=== PATIENT | male | born 1980 | race Caucasian/White ===

== ENCOUNTER 2018-05-26 08:37 | Observation (INO) ==
--- NOTE | 2018-05-26 09:04 | ED ---
HPI General Chief Complaint: Chest Pain Stated Complaint: Chest pains Time Seen by Provider: 05/26/18 08:58 History of Present Illness HPI narrative: The patient is a 37-year-old male with a history of unexplained clots to the kidney complaining of left substernal chest pain. The chest pain began around 5 AM when he woke up earlier this morning and radiated from the left side of the sternum to his left shoulder. He is at the chest pain was constant, sharp, and a 6/10 on the pain scale. Now he rates his pain as a 4/10 on the pain scale. The patient took 325 mg of aspirin which provided some relief but he still currently feels some of the pain. He has no associated shortness of breath, nausea, vomiting, or diaphoresis. He is never had anything like this before. He reported to his medical office and had a normal EKG earlier this morning but since the pain continued he decided to report to the emergency department. Complete Quality Measures for STEMI Alert Patients Related Data Home Medications Medication Instructions Recorded Confirmed aspirin 325 mg PO DAILY 05/26/18 05/26/18 esomeprazole magnesium [Nexium 20 mg PO DAILY 05/26/18 05/26/18 24HR] Allergies Allergy/AdvReac Type Severity Reaction Status Date / Time cefaclor Allergy Severe HIVES Verified 05/26/18 08:39 Review of Systems Constitutional Denies chills and Denies fever(s) Eyes Denies blurry vision and Denies photophobia ENT Denies hearing loss and Denies sore throat Cardiovascular Reports chest pain, Denies diaphoresis and Reports radiating jaw, neck or arm pain (Radiating to the left shoulder) Respiratory Denies cough and Denies dyspnea Gastrointestinal Denies nausea and Denies vomiting Genitourinary Denies dysuria and Denies flank pain Musculoskeletal Denies muscle weakness and Denies stiffness Integumentary/Breasts Denies rash and Denies jaundice Neurologic Denies focal weakness and Denies numbness Psychiatric Denies anxiety and Denies behavioral changes Endocrine Denies flushing and Denies palpitations PMFSH Medical History Medical History Hx of blood clots (Acute) Surgical History Surgical History No pertinent past surgical history (Acute) Social History Social History Substance History: No History of Abuse Second Hand Smoke Exposure: Yes Smoking Status: Current every day smoker Tobacco Type: Cigarettes How Often Do You Have a Drink Containing Alcohol: 2 to 4 times a month Recent Travel in [facility] within the Last 8 Weeks: No Recent Out of Country Travel within the Last 8 Weeks: No Immunization History Tetanus Immunization: >5 Years Hx Influenza Vaccine This Season: No Exam Narrative Exam Narrative: GENERAL: Well-developed well-nourished male appearing in no acute respiratory distress SKIN: Focused skin assessment warm/dry. HEAD: Atraumatic. Normocephalic. EYES: Pupils equal and round. No scleral icterus. No injection or drainage. ENT: No nasal bleeding or discharge. Mucous membranes pink and moist. NECK: Trachea midline. No JVD. CARDIOVASCULAR: Regular rate and rhythm. No murmur appreciated. Chest pain is nonreproducible. Distal pulses in all 4 extremities are 2+. RESPIRATORY: No accessory muscle use. Clear to auscultation. Breath sounds equal bilaterally. GASTROINTESTINAL: Abdomen soft, non-tender, nondistended. Hepatic and splenic margins not palpable. MUSCULOSKELETAL: No obvious deformities. No clubbing. No cyanosis. No edema. NEUROLOGICAL: Awake and alert. No obvious cranial nerve deficits. Motor grossly within normal limits. Normal speech. Course Initial Documented Vital Signs Temperature 98.3 F 05/26/18 08:40 Pulse Rate 85 05/26/18 08:40 Respiratory Rate 16 05/26/18 08:40 Blood Pressure 156/87 H 05/26/18 08:40 Pulse Oximetry 99 05/26/18 08:40 Last Documented Vital Signs Temperature 98.6 F 05/26/18 20:00 Pulse Rate 100 H 05/26/18 20:00 Respiratory Rate 16 05/26/18 20:00 Blood Pressure 112/70 05/26/18 20:00 Pulse Oximetry 97 05/26/18 20:00 Medical Decision Making [facility] Narrative Medical decision making narrative: 37-year-old male resents today with complaints of left-sided chest pain. Patient reports it as a sharp and constant pain since this morning. Patient's had a history of clots in the past. Patient's d-dimer is negative for acute process. Cardiac enzymes are negative. The patient does have an elevated white blood cell count of 26,000. Patient has no fever no chills. There is no reproducible pain. Chest x-ray shows no evidence of acute infiltrate. Given his history of infarcted kidneys, patient will be admitted to the chest pain center for rule out protocol. Case was discussed with Dr. Zaid Rodriguez and Adalberto Genao PA-C. They requested we repeat the CBC. That has been ordered. They will follow up on the results. I anticipate the patient will go home tomorrow. We did discuss with the patient that if his chest pain workup is negative, he will still need to follow-up with his primary care physician for his elevated white blood cell count. Medical Screen Exam Complete: Yes Emergency Medical Condition: Yes Differential Diagnosis Differential Diagnosis: Myocardial infarction, atypical angina, PE, costochondritis Lab Data Result diagrams: 05/26/18 14:53 05/26/18 08:50 Lab Results 05/26/18 05/26/18 05/26/18 Range/Units 08:50 08:50 08:50 WBC 26.1 H (4.0-11.0) th/mm3 RBC 5.38 (4.50-5.90) mil/mm3 Hgb 16.6 (13.0-17.0) gm/dL Hct 49.1 (39.0-51.0) % MCV 91.2 (80.0-100.0) fL MCH 30.8 (27.0-34.0) pg MCHC 33.7 (32.0-36.0) % RDW 12.5 (11.6-17.2) % Plt Count 274 (150-450) th/mm3 MPV 9.6 (7.0-11.0) fL Neut % (Auto) 87.2 H (16.0-70.0) % Lymph % (Auto) 6.4 L (9.0-44.0) % [place] % (Auto) 5.2 (0.0-8.0) % Eos % (Auto) 0.7 (0.0-4.0) % Baso % (Auto) 0.5 (0.0-2.0) % Neut # (Auto) 22.7 H (1.8-7.7) th/mm3 Lymph # (Auto) 1.7 (1.0-4.8) th/mm3 [place] # (Auto) 1.4 H (0.0-0.9) th/mm3 Eos # (Auto) 0.2 (0.0-0.4) th/mm3 Baso # (Auto) 0.1 (0.0-0.2) th/mm3 WBC Differential . Differential Comment Auto diff final PT 10.6 (9.8-11.6) sec INR 1.0 Ratio APTT 24.7 (24.3-30.1) sec D-Dimer Quant (PE/DVT) (0.00-0.50) mg/L FEU Sodium 139 (136-145) meq/L Potassium 4.1 (3.5-5.1) meq/L Chloride 103 (98-107) meq/L Carbon Dioxide 27.9 (21.0-32.0) meq/L Anion Gap 8 (5-15) meq/L BUN 9 (7-18) mg/dL Creatinine 1.06 (0.60-1.30) mg/dL Estimated GFR 79 L (>89) mL/min Random Glucose 152 H (74-106) mg/dL Calcium 8.6 (8.5-10.1) mg/dL Total Bilirubin (0.2-1.0) mg/dL Direct Bilirubin (0.0-0.2) mg/dL Indirect Bilirubin (0.0-0.8) mg/dL AST (15-37) U/L ALT (12-78) U/L Alkaline Phosphatase (45-117) U/L Total Creatine Kinase (39-308) U/L Troponin I Less than 0.02 L (0.02-0.05) ng/mL Total Protein (6.4-8.2) g/dL Albumin (3.4-5.0) g/dL 05/26/18 05/26/18 05/26/18 Range/Units 08:50 13:15 14:53 WBC 17.6 H (4.0-11.0) th/mm3 RBC 4.92 (4.50-5.90) mil/mm3 Hgb 15.2 (13.0-17.0) gm/dL Hct 44.7 (39.0-51.0) % MCV 90.9 (80.0-100.0) fL MCH 30.9 (27.0-34.0) pg MCHC 34.0 (32.0-36.0) % RDW 12.5 (11.6-17.2) % Plt Count 242 (150-450) th/mm3 MPV 9.8 (7.0-11.0) fL Neut % (Auto) 81.1 H (16.0-70.0) % Lymph % (Auto) 11.2 (9.0-44.0) % [place] % (Auto) 6.1 (0.0-8.0) % Eos % (Auto) 1.1 (0.0-4.0) % Baso % (Auto) 0.5 (0.0-2.0) % Neut # (Auto) 14.3 H (1.8-7.7) th/mm3 Lymph # (Auto) 2.0 (1.0-4.8) th/mm3 [place] # (Auto) 1.1 H (0.0-0.9) th/mm3 Eos # (Auto) 0.2 (0.0-0.4) th/mm3 Baso # (Auto) 0.1 (0.0-0.2) th/mm3 WBC Differential . Differential Comment Auto diff final PT (9.8-11.6) sec INR Ratio APTT (24.3-30.1) sec D-Dimer Quant (PE/DVT) Less than 0.19 (0.00-0.50) mg/L FEU Sodium (136-145) meq/L Potassium (3.5-5.1) meq/L Chloride (98-107) meq/L Carbon Dioxide (21.0-32.0) meq/L Anion Gap (5-15) meq/L BUN (7-18) mg/dL Creatinine (0.60-1.30) mg/dL Estimated GFR (>89) mL/min Random Glucose (74-106) mg/dL Calcium (8.5-10.1) mg/dL Total Bilirubin (0.2-1.0) mg/dL Direct Bilirubin (0.0-0.2) mg/dL Indirect Bilirubin (0.0-0.8) mg/dL AST (15-37) U/L ALT (12-78) U/L Alkaline Phosphatase (45-117) U/L Total Creatine Kinase 93 (39-308) U/L Troponin I Less than 0.02 L (0.02-0.05) ng/mL Total Protein (6.4-8.2) g/dL Albumin (3.4-5.0) g/dL 05/26/18 05/26/18 Range/Units 14:53 16:25 WBC (4.0-11.0) th/mm3 RBC (4.50-5.90) mil/mm3 Hgb (13.0-17.0) gm/dL Hct (39.0-51.0) % MCV (80.0-100.0) fL MCH (27.0-34.0) pg MCHC (32.0-36.0) % RDW (11.6-17.2) % Plt Count (150-450) th/mm3 MPV (7.0-11.0) fL Neut % (Auto) (16.0-70.0) % Lymph % (Auto) (9.0-44.0) % [place] % (Auto) (0.0-8.0) % Eos % (Auto) (0.0-4.0) % Baso % (Auto) (0.0-2.0) % Neut # (Auto) (1.8-7.7) th/mm3 Lymph # (Auto) (1.0-4.8) th/mm3 [place] # (Auto) (0.0-0.9) th/mm3 Eos # (Auto) (0.0-0.4) th/mm3 Baso # (Auto) (0.0-0.2) th/mm3 WBC Differential Differential Comment PT (9.8-11.6) sec INR Ratio APTT (24.3-30.1) sec D-Dimer Quant (PE/DVT) (0.00-0.50) mg/L FEU Sodium (136-145) meq/L Potassium (3.5-5.1) meq/L Chloride (98-107) meq/L Carbon Dioxide (21.0-32.0) meq/L Anion Gap (5-15) meq/L BUN (7-18) mg/dL Creatinine (0.60-1.30) mg/dL Estimated GFR (>89) mL/min Random Glucose (74-106) mg/dL Calcium (8.5-10.1) mg/dL Total Bilirubin 1.4 H (0.2-1.0) mg/dL Direct Bilirubin 0.2 (0.0-0.2) mg/dL Indirect Bilirubin 1.2 H (0.0-0.8) mg/dL AST 13 L (15-37) U/L ALT 27 (12-78) U/L Alkaline Phosphatase 47 (45-117) U/L Total Creatine Kinase 88 (39-308) U/L Troponin I Less than 0.02 L (0.02-0.05) ng/mL Total Protein 6.9 (6.4-8.2) g/dL Albumin 3.6 (3.4-5.0) g/dL Imaging Data Radiologist's impression: Chest X-Ray 05/26/18 08:46 CONCLUSION: No acute disease Discharge Plan Discharge Disposition Patient Disposition: 30 Still Patient Discharge Details Diagnosis: Atypical chest pain, Leukocytosis Physicians Team ED Provider: Castro Steven Primary Care Provider: Fabricio Rodríguez Attending Provider: Zaid Rodriguez Discharge Interventions Interventions: ED Discharge Assessment Last Done: 05/26/18 15:43 Vital Signs Last Done: 05/26/18 10:42 Status ED Status: Left Department Discharge Information Discharge Date/Time: 05/26/18 15:43
--- NOTE | 2018-05-26 09:10 | XR ---
EXAM DATE: 05/26/2018 9:07 AM EDT AGE/SEX: 37 years / Male INDICATIONS: Chest pain. CLINICAL DATA: This is the patient's initial encounter. Patient reports that signs and symptoms have been present for 1 day and indicates a pain score of 5/10. MEDICAL/SURGICAL HISTORY: . Smoker. None. COMPARISON: No prior exams available for comparison. FINDINGS: A single AP view of the chest demonstrates the lungs to be symmetrically aerated without evidence of mass, infiltrate or effusion. The cardiomediastinal contours are unremarkable. Osseous structures a re intact. CONCLUSION: No acute disease Electronically signed by: Fabricio Ferrer MD 05/26/2018 9:09 AM EDT
[2018-05-26 09:13] LABS: Baso # (Auto) 0.1 th/mm3 (0.0-0.2); Baso % (Auto) 0.5 % (0.0-2.0); Eos # (Auto) 0.2 th/mm3 (0.0-0.4); Eos % (Auto) 0.7 % (0.0-4.0); Hematocrit 49.1 % (39.0-51.0); Hemoglobin 16.6 gm/dL (13.0-17.0); Lymph # (Auto) 1.7 th/mm3 (1.0-4.8); Lymph % (Auto) 6.4 % (9.0-44.0); Mean Corpuscular HGB Conc 33.7 % (32.0-36.0); Mean Corpuscular Hemoglobin 30.8 pg (27.0-34.0); Mean Corpuscular Volume 91.2 fL (80.0-100.0); Mean Platelet Volume 9.6 fL (7.0-11.0); Mono # (Auto) 1.4 th/mm3 (0.0-0.9); Mono % (Auto) 5.2 % (0.0-8.0); Neut # (Auto) 22.7 th/mm3 (1.8-7.7); Neut % (Auto) 87.2 % (16.0-70.0); Platelet Count 274 th/mm3 (150-450); Red Blood Count 5.38 mil/mm3 (4.50-5.90); Red Cell Distribution Width 12.5 % (11.6-17.2); White Blood Count 26.1 th/mm3 (4.0-11.0)
[2018-05-26 09:20] LABS: Activated Partial Thrombo Time 24.7 sec (24.3-30.1); Prothrombin Time 10.6 sec (9.8-11.6)
[2018-05-26 09:34] LABS: Anion Gap 8 meq/L (5-15); Blood Urea Nitrogen 9 mg/dL (7-18); Calcium 8.6 mg/dL (8.5-10.1); Carbon Dioxide 27.9 meq/L (21.0-32.0); Chloride 103 meq/L (98-107); Glomerular Filtration Rate 79 mL/min (>89); Glucose,Random 152 mg/dL (74-106); Potassium 4.1 meq/L (3.5-5.1); Sodium 139 meq/L (136-145)
--- NOTE | 2018-05-26 13:41 | P.HPCA ---
History of Present Illness Primary Care Physician: Fabricio Rodríguez DO Chief Complaint: Chest pain History of Present Illness: This is a 37-year-old male with history of left renal embolic infarction 2013 and eosinophilic esophagitis the presents to ED via private vehicle with his girlfriend with a complaint of waking up about 5 this morning with the left shoulder discomfort that then turned left-sided chest discomfort. Describes as a sharp discomfort at first and then a dull discomfort is still there. Currently the discomfort is been there for 8 hours. Found that when he takes in a deep breath it is worsened. States the area is not tender. Denies associated shortness of breath, nausea, diaphoresis. States he has never had a cardiac evaluation. States his mother was told that she has atherosclerosis but has never had a stent or bypass. Smokes about one half pack of cigarettes daily for 10 years. Has occasional alcohol. Denies illicit drugs. States that his mother has atherosclerosis but has not had stent or bypass. - Diagnosis (1) Chest pain (2) Tobacco abuse (3) Leukocytosis Review of Systems General: Patient denies fevers, chills, and recent travel. HEENT: Patient denies headache, sore throat, difficulty swallowing. Cardiovascular: Has the chest discomfort as mentioned above. Denies sensation of heart beating rapidly or irregularly. No syncope. Denies diaphoresis. Respiratory: Denies shortness of breath. States discomfort is worse with deep inspiration. Denies coughing wheezing or hemoptysis. GI: Patient denies nausea, vomiting, diarrhea, abdominal pain, bloody stools. Musculoskeletal: Patient denies joint pain or edema. Denies calf pain or edema. Neurovascular: Patient denies numbness, tingling, weakness in extremities. Denies headache. Endocrine: Denies polyuria and polydipsia. Hematologic: Denies easy bruising. Skin: Denies rash or itching. PMFSH - History History Provided By: Patient - Medical History Medical History: Medical History (Last Updated 05/26/18 @ 08:50 by Cheryl Riddle) Hx of blood clots - Surgical History Surgical History: Surgical History (Last Updated 05/26/18 @ 08:49 by Cheryl Riddle) No pertinent past surgical history - Tobacco History Second Hand Smoke Exposure: No Smoking Status: Never smoker - Alcohol History How Often Do You Have a Drink Containing Alcohol: 2 to 4 times a month - Substance Use History Substance History: No History of Abuse - Travel History Recent Travel in the [place] Within the Last 8 Weeks: Yes Recent Travel Out of the Country Within the Last 8 Weeks: No - Immunization History Tetanus Immunization: >5 Years Hx Influenza Vaccine This Season: No Medications and Allergies Active Medications: Active Medications Sodium Chloride (Ns Flush) 2 ml IV.FLUSH UNSCH PRN PRN Reason: FLUSH AFTER USING IV ACCESS Allergies Allergy/AdvReac Type Severity Reaction Status Date / Time cefaclor Allergy Severe HIVES Verified 05/26/18 08:39 Home Medications Medication Instructions Recorded Confirmed Type aspirin 325 mg PO DAILY 05/26/18 05/26/18 History Exam Vital signs: Vital Signs 05/26/18 08:40 05/26/18 08:49 05/26/18 10:42 Temperature 98.3 F 97.8 F Pulse Rate 85 88 87 Respiratory Rate Blood Pressure 156/87 H 137/80 111/68 Pulse Oximetry 99 99 96 Intake & Output 05/25/18 05/26/18 05/26/18 18:59 06:59 18:59 Weight 87.09 kg Narrative: GENERAL: This is a well-nourished, well-developed patient, in no apparent distress. Patient speaks in clear complete sentences. Patient is pleasant. HEENT: Head is atraumatic and normocephalic. Neck is supple without lymphadenopathy and trachea is midline. No JVD or carotid bruits. CARDIOVASCULAR: Regular rate and rhythm without murmurs, gallops, or rubs. RESPIRATORY: Clear to auscultation. Breath sounds equal bilaterally. No wheezes , rales, or rhonchi. Chest wall is nontender. No use of accessory muscles. GASTROINTESTINAL: Abdomen is nontender, nondistended. Abdomen soft. No obvious pulsatile mass or bruit. No CVA tenderness. Strong femoral pulses bilaterally. Normal bowel sounds in all quadrants. MUSCULOSKELETAL: Patient is moving upper and lower extremities freely. No calf tenderness or edema, no Homans sign. Strong pulses in upper and lower extremities. NEUROLOGICAL: Patient is alert and oriented. Cranial nerves 2-12 are grossly intact. No focal deficits and speech is clear. SKIN: No rash and turgor is normal. Results 05/26/18 08:50 05/26/18 08:50 Cardiac Enzymes 05/26/18 Range/Units 08:50 Troponin I Less than 0.02 L (0.02-0.05) ng/mL Coagulation 05/26/18 Range/Units 08:50 PT 10.6 (9.8-11.6) sec APTT 24.7 (24.3-30.1) sec CBC 05/26/18 Range/Units 08:50 WBC 26.1 H (4.0-11.0) th/mm3 RBC 5.38 (4.50-5.90) mil/mm3 Hgb 16.6 (13.0-17.0) gm/dL Hct 49.1 (39.0-51.0) % Plt Count 274 (150-450) th/mm3 Neut # (Auto) 22.7 H (1.8-7.7) th/mm3 Lymph # (Auto) 1.7 (1.0-4.8) th/mm3 [place] # (Auto) 1.4 H (0.0-0.9) th/mm3 Eos # (Auto) 0.2 (0.0-0.4) th/mm3 Baso # (Auto) 0.1 (0.0-0.2) th/mm3 Comprehensive Metabolic Panel 05/26/18 Range/Units 08:50 Sodium 139 (136-145) meq/L Potassium 4.1 (3.5-5.1) meq/L Chloride 103 (98-107) meq/L Carbon Dioxide 27.9 (21.0-32.0) meq/L BUN 9 (7-18) mg/dL Creatinine 1.06 (0.60-1.30) mg/dL Calcium 8.6 (8.5-10.1) mg/dL Intake and Output 05/25/18 05/26/18 05/26/18 22:59 06:59 14:59 Other: Weight 87.09 kg Patient Weight 05/27/18 06:59 Weight 87.09 kg EKG interpretations - EKG EKG shows: sinus rhythm (Initial EKG is sinus rhythm/sinus arrhythmia without significant ST segment depressions or elevations.) Caprini VTE Risk Assessment Caprini VTE Risk Assessment: No/Low Risk (score <= 1) Caprini Risk Assessment Model: Point Value = 1 Point Value = 2 Point Value = 3 Point Value = 5 Age 41-60 Minor surgery BMI > 25 kg/m2 Swollen legs Varicose veins or History of unexplained or recurrent spontaneous Oral contraceptives or hormone replacement Sepsis (< 1 month) Serious lung disease, including pneumonia (< 1 month) Abnormal pulmonary function Acute myocardial infarction Congestive heart failure (< 1 month) History of inflammatory bowel disease Medical patient at bed rest Age 61-74 Arthroscopic surgery Major open surgery (> 45 min) Laparoscopic surgery (> 45 min) Malignancy Confined to bed (> 72 hours) Immobilizing plaster cast Central venous access Age >= 75 History of VTE Family history of VTE Factor V Leiden Prothrombin [id number] Lupus anticoagulant Anticardiolipin antibodies Elevated serum homocysteine Heparin-induced thrombocytopenia Other congenital or acquired thrombophilia Stroke (< 1 month) Elective arthroplasty Hip, pelvis, or leg fracture Acute spinal cord injury (< 1 month) Prophylaxis Regimen: Total Risk Factor Score Risk Level Prophylaxis Regimen 0-1 Low Early ambulation 2 Moderate Order ONE of the following: *Sequential Compression Device (SCD) *Heparin 5000 units SQ BID 3-4 Higher Order ONE of the following medications: *Heparin 5000 units SQ TID *Enoxaparin/Lovenox 40 mg SQ daily (WT < 150 kg, CrCl > 30 mL/min) *Enoxaparin/Lovenox 30 mg SQ daily (WT < 150 kg, CrCl > 10-29 mL/min) *Enoxaparin/Lovenox 30 mg SQ BID (WT < 150 kg, CrCl > 30 mL/min) AND/OR *Sequential Compression Device (SCD) 5 or more Highest Order ONE of the following medications: *Heparin 5000 units SQ TID (Preferred with Epidurals) *Enoxaparin/Lovenox 40 mg SQ daily (WT < 150 kg, CrCl > 30 mL/min) *Enoxaparin/Lovenox 30 mg SQ daily (WT < 150 kg, CrCl > 10-29 mL/min) *Enoxaparin/Lovenox 30 mg SQ BID (WT < 150 kg, CrCl > 30 mL/min) AND *Sequential Compression Device (SCD) Assessment and Plan - Assessment (1) Chest pain Code(s): R07.9 - Chest pain, unspecified Status: Acute (2) Tobacco abuse Code(s): Z72.0 - Tobacco use Status: Acute (3) Leukocytosis Code(s): D72.829 - Elevated white blood cell count, unspecified Status: Acute - Plan * Chest pain: Patient will continue to have serial cardiac enzymes and EKGs for ruling out purposes. He will be seen by Dr. Rodriguez of cardiology in the chest pain center. Likely proceed with stress testing. Patient be discharged home if stress test is nonischemic with instructions to follow-up with PCP. Return to ED for interval issues. * Leukocytosis: Patient will need follow-up with PCP. * Tobacco abuse: Patient counseled importance of smoking cessation. Patient is stable at this time. He is agreeable to this plan.
[2018-05-26 13:56] LABS: Creatine Kinase 93 U/L (39-308)
[2018-05-26] MEDS ORDERED: ALPRAZolam 0.25 MG Tablet PO PRN (14:00)
--- NOTE | 2018-05-26 14:47 | P.PNCA ---
Subjective Interval history: 37-year-old man seen in concert with ZAKIYA presents with left-sided chest pain beginning this morning and described as a sharp pain radiating from the right diaphragmatic area up to the left shoulder and scapular area. The pain is somewhat pleuritic but otherwise has been constant since this morning. This pain is very atypical for cardiac pain and the patient is noted to have a white count elevation at 26,000 however no evidence of acute infection is otherwise noted. He has no abdominal symptoms he has no tenderness over his right upper quadrant he has had no fever chills cough known exposure to upper respiratory illness and no other systemic symptoms. He was admitted to the chest pain center essentially to definitively rule out cardiac etiology but also for observation of his white count. Physical Exam Vital signs: Vital Signs 05/26/18 08:40 05/26/18 08:49 05/26/18 09:19 Temperature 98.3 F 97.8 F Pulse Rate 85 88 82 Respiratory Rate 16 16 18 Blood Pressure 156/87 H 137/80 103/58 L Pulse Oximetry 99 99 99 05/26/18 10:42 Temperature Pulse Rate 87 Respiratory Rate 18 Blood Pressure 111/68 Pulse Oximetry 96 Intake & Output 05/25/18 05/26/18 05/26/18 18:59 06:59 18:59 Weight 87.09 kg Narrative: Well-nourished well-developed man in no distress other than relatively mild constant left shoulder and chest pain Head normocephalic atraumatic Eyes PERRLA EOMI Mouth mucous membranes moist and well papillated no lesions Neck supple no JVD masses nodes or bruits Chest clear to auscultation with no rales wheezes or rhonchi. There are no areas of tenderness and no rub is noted Cardiovascular regular sinus rhythm no gallop rub or murmur Abdomen soft nontender right upper quadrant is negative even to deep palpation no guarding or rebound and no masses are palpable palpated EKG is unremarkable CBC shows elevated white count of 26,000 Chest x-ray unremarkable Assessment and Plan - Assessment (1) Chest pain Code(s): R07.9 - Chest pain, unspecified Status: Acute Plan: Discussion with Dr. Steven was additionally carried out. This patient appears to have an elevated white count suggesting infection but no clear source other than a vague right chest pleuritic pain. Additional laboratory data will be obtained but otherwise it is difficult to know which direction to follow-up for further evaluation at this point in time. He will therefore be watched with standard EMR TRAINER protocol but with the addition of repeat white blood counts and observation. Further evaluation will be dependent on these results (2) Tobacco abuse Code(s): Z72.0 - Tobacco use Status: Acute (3) Leukocytosis Code(s): D72.829 - Elevated white blood cell count, unspecified Status: Acute - Plan * Chest pain: Patient will continue to have serial cardiac enzymes and EKGs for ruling out purposes. He will be seen by Dr. Rodriguez of cardiology in the chest pain center. Likely proceed with stress testing. Patient be discharged home if stress test is nonischemic with instructions to follow-up with PCP. Return to ED for interval issues. * Leukocytosis: Patient will need follow-up with PCP. * Tobacco abuse: Patient counseled importance of smoking cessation. Patient is stable at this time. He is agreeable to this plan.
[2018-05-26 15:21] LABS: Baso # (Auto) 0.1 th/mm3 (0.0-0.2); Baso % (Auto) 0.5 % (0.0-2.0); Eos # (Auto) 0.2 th/mm3 (0.0-0.4); Eos % (Auto) 1.1 % (0.0-4.0); Hematocrit 44.7 % (39.0-51.0); Hemoglobin 15.2 gm/dL (13.0-17.0); Lymph % (Auto) 11.2 % (9.0-44.0); Mean Corpuscular Hemoglobin 30.9 pg (27.0-34.0); Mean Corpuscular Volume 90.9 fL (80.0-100.0); Mean Platelet Volume 9.8 fL (7.0-11.0); Mono # (Auto) 1.1 th/mm3 (0.0-0.9); Mono % (Auto) 6.1 % (0.0-8.0); Neut # (Auto) 14.3 th/mm3 (1.8-7.7); Neut % (Auto) 81.1 % (16.0-70.0); Platelet Count 242 th/mm3 (150-450); Red Blood Count 4.92 mil/mm3 (4.50-5.90); Red Cell Distribution Width 12.5 % (11.6-17.2); White Blood Count 17.6 th/mm3 (4.0-11.0)
[2018-05-26 15:45] LABS: Albumin 3.6 g/dL (3.4-5.0)
[2018-05-26 15:47] LABS: Total Protein 6.9 g/dL (6.4-8.2)
[2018-05-26] MEDS ORDERED: Ketorolac Inj 30 MG/ML (IVP) Vial IV.PUSH ONE (16:01)
[2018-05-26 17:26] LABS: Creatine Kinase 88 U/L (39-308)
[2018-05-27 06:56] LABS: Baso # (Auto) 0.1 th/mm3 (0.0-0.2); Baso % (Auto) 0.9 % (0.0-2.0); Eos # (Auto) 0.4 th/mm3 (0.0-0.4); Eos % (Auto) 3.3 % (0.0-4.0); Hematocrit 44.7 % (39.0-51.0); Hemoglobin 15.3 gm/dL (13.0-17.0); Lymph # (Auto) 2.6 th/mm3 (1.0-4.8); Lymph % (Auto) 22.3 % (9.0-44.0); Mean Corpuscular HGB Conc 34.2 % (32.0-36.0); Mean Corpuscular Hemoglobin 31.3 pg (27.0-34.0); Mean Corpuscular Volume 91.5 fL (80.0-100.0); Mean Platelet Volume 9.8 fL (7.0-11.0); Mono # (Auto) 1.1 th/mm3 (0.0-0.9); Mono % (Auto) 9.7 % (0.0-8.0); Neut # (Auto) 7.5 th/mm3 (1.8-7.7); Neut % (Auto) 63.8 % (16.0-70.0); Platelet Count 224 th/mm3 (150-450); Red Blood Count 4.88 mil/mm3 (4.50-5.90); Red Cell Distribution Width 12.4 % (11.6-17.2); White Blood Count 11.8 th/mm3 (4.0-11.0)
[2018-05-27] MEDS ORDERED: Aspirin 325 MG Tablet PO SCH (09:00)
--- NOTE | 2018-05-27 10:29 | TR ---
Date Performed: 05/27/2018 Time Performed: 09:01:17 DOCTOR: Keyur Keen DRUG LIST: CLINICAL HISTORY: REASON FOR TEST: Chest pain REASON FOR ENDING: OBSERVATION: CONCLUSION: ROSA PROTOCOL. PATIENT'S CONSTANT CHEST PAIN DID NOT WORSEN. TEST STOPPED AFTER EXC EEDING GOAL HR SECONDARY TO SOB AND LEG FATIGUE.Maximum GO=143 % Max HR Udnqxtip=966.0% Maximum BP=16 0/110 Total Exercise Time=10:30 COMMENTS: Conclusion: Normal treadmill exercise. No evidence of ischemia.Early repolarization a t rest.
--- NOTE | 2018-05-27 16:21 | ECG ---
Date Performed: 05/26/2018 Time Performed: 13:10:02 PTAGE: 37 years EKG: Sinus rhythm WITH SINUS ARRHYTHMIA EARLY REPOLARIZATION When compared to previous tracing, the early repolarizati on is New. BORDERLINE ECG PREVIOUS TRACING : 05/26/2018 08.52 DOCTOR: Keyur Keen Interpretating Date/Time 05/27/2018 16:20:43
--- NOTE | 2018-05-27 16:21 | ECG ---
Date Performed: 05/26/2018 Time Performed: 08:52:16 PTAGE: 37 years EKG: Marked sinus arrhythmia Small inferior T waves of undetermined significance. Since previous tracing, no significant change noted BORDERLINE ECG PREVIOUS TRACING : 05/25/2014 21.30 DOCTOR: Keyur Keen Interpretating Date/Time 05/27/2018 16:19:23
--- NOTE | 2018-05-27 16:21 | ECG ---
Date Performed: 05/26/2018 Time Performed: 16:09:10 PTAGE: 37 years EKG: Sinus rhythm WITH SINUS ARRHYTHMIA ST changes compatible with early repolarization. Since previous tracing, no si gnificant change noted ABNORMAL ECG PREVIOUS TRACING : 05/26/2018 13.10 DOCTOR: Keyur Keen Interpretating Date/Time 05/27/2018 16:21:35
== END 2018-05-27 11:33 | disposition home or self-care (01) ==
LOC: NEPE 08:37 → NEPFCDU 08:37 → NEDA 08:37 → NEPFCDU 15:43
PROVIDERS: ADMIT Internal Medicine Interventional Cardiology; ATTEND Internal Medicine Interventional Cardiology